=== PATIENT | male | born 1950 | race Hispanic/Latino ===

== ENCOUNTER 2017-09-03 08:50 | Outpatient (CLI) | payer MEDICARE ==
[2017-09-03 11:18] LABS: #Eosinphils 0.2 thou/uL (0.0-0.7); #Lymphocytes 1.7 thou/uL (1.20-3.40); #Monocytes 0.5 thou/uL (0.11-0.59); #Neutrophils 7.2 thou/uL (1.40-6.50); %Basophils 0.1 % (0.0-1.0); %Eosinophils 2.1 % (0.0-10.0); %Lymphocytes 17.8 % (21.0-51.0); %Monocytes 5.1 % (0.0-10.0); Hemoglobin 15.3 g/dL (14.0-18.0); Mean Corpuscular HGB CONC 34.2 g/dL (32.0-36.0); Mean Corpuscular Hemoglobin 30.8 pg (27.0-31.0); Mean Corpuscular Volume 89.9 fl (80.0-94.0); Mean Platelet Volume 8.1 fL (7.4-10.4); Platelet Count 178 thou/uL (130-400); RBC Distribution Width 12.3 % (11.5-14.5); Red Blood Cell (RBC) Count 4.96 mill/uL (4.70-6.10); White Blood Cell (WBC) Count 9.6 thou/uL (4.8-10.8)
[2017-09-03 11:32] LABS: ALT (SGPT) 79 U/L (8-55); AST (SGOT) 31 U/L (5-34); Albumin 4.2 g/dL (3.4-4.8); Alkaline Phosphatase 88 U/L (40-150); Anion Gap 15 mmol/L (10-20); BUN (Urea Nitrogen) 16 mg/dL (8.4-25.7); Bilirubin, Total 0.7 mg/dL (0.2-1.2); Calc. Creatinine Clearance 0 mL/min (70-130); Calcium 9.6 mg/dL (7.8-10.44); Carbon Dioxide 26 mmol/L (23-31); Chloride 99 mmol/L (98-107); Estimated GFR-MDRD 83; Globulin 3.6 g/dL (2.4-3.5); Glucose 207 mg/dL (80-115); Potassium 3.7 mmol/L (3.5-5.1); Protein, Total 7.8 g/dL (5.8-8.1); Sodium 136 mmol/L (136-145)
--- NOTE | 2017-09-11 19:32 | EKG ---
Test Reason : Blood Pressure : / mmHG Vent. Rate : 080 BPM Atrial Rate : 080 BPM P-R Int : 154 ms QRS Dur : 120 ms QT Int : 400 ms P-R-T Axes : -04 058 028 degrees QTc Int : 461 ms Normal sinus rhythm Right bundle branch block Possible Inferior infarct , age undetermined Abnormal ECG Confirmed by ALEXEY MCLEAN ([id number]) on 09/11/2017 7:31:44 PM Referred By: LUIS FERNANDO Confirmed By:ALEXEY MCLEAN
== END 2017-09-03 08:51 | disposition home or self-care (01) ==
LOC: LABBT 08:50
PROVIDERS: ATTEND Specialist
DX: Z01.818 Encounter for other preprocedural examination (principal); K94.00 Colostomy complication, unspecified; Z87.19 Personal history of other diseases of the digestive system; Z93.3 Colostomy status; Z90.49 Acquired absence of other specified parts of digestive tract
CPT/HCPCS: 80053; 85025; 93005; 93010

== ENCOUNTER 2017-12-16 10:19 | Outpatient (CLI) | payer MEDICARE, MEDICAID ==
[2017-12-16 11:40] LABS: #Eosinphils 0.3 thou/uL (0.0-0.7); #Lymphocytes 1.3 thou/uL (1.20-3.40); #Monocytes 0.4 thou/uL (0.11-0.59); %Basophils 0.2 % (0.0-1.0); %Eosinophils 5.3 % (0.0-10.0); %Lymphocytes 26.2 % (21.0-51.0); %Monocytes 7.6 % (0.0-10.0); %Neutrophils 60.7 % (42.0-75.0); Hemoglobin 15.1 g/dL (14.0-18.0); Mean Corpuscular HGB CONC 32.8 g/dL (32.0-36.0); Mean Corpuscular Hemoglobin 29.3 pg (27.0-31.0); Mean Corpuscular Volume 89.4 fl (80.0-94.0); Mean Platelet Volume 7.8 fL (7.4-10.4); Platelet Count 184 thou/uL (130-400); Red Blood Cell (RBC) Count 5.16 mill/uL (4.70-6.10)
[2017-12-16 12:01] LABS: Anion Gap 13 mmol/L (10-20); BUN (Urea Nitrogen) 18 mg/dL (8.4-25.7); Calc. Creatinine Clearance 0 mL/min (70-130); Calcium 9.2 mg/dL (7.8-10.44); Carbon Dioxide 28 mmol/L (23-31); Chloride 101 mmol/L (98-107); Estimated GFR-MDRD 70; Glucose 131 mg/dL (80-115); Potassium 4.2 mmol/L (3.5-5.1); Sodium 138 mmol/L (136-145)
--- NOTE | 2017-12-21 08:44 | EKG ---
Test Reason : Blood Pressure : / mmHG Vent. Rate : 057 BPM Atrial Rate : 057 BPM P-R Int : 198 ms QRS Dur : 120 ms QT Int : 448 ms P-R-T Axes : 000 077 021 degrees QTc Int : 436 ms Sinus bradycardia Right bundle branch block Abnormal ECG When compared with ECG of 03-SEP-2017 10:13, Borderline criteria for Inferior infarct are no longer Present Confirmed by HUSSEIN CARBALLO, BARBRA ([id number]) on 12/21/2017 8:44:06 AM Referred By: LUIS FERNANDO Confirmed By:BARBRA SAVAGE MD
== END 2017-12-16 10:20 | disposition home or self-care (01) ==
LOC: LABBT 10:19
PROVIDERS: ATTEND Specialist
DX: Z01.818 Encounter for other preprocedural examination (principal); Z90.49 Acquired absence of other specified parts of digestive tract; Z93.3 Colostomy status
CPT/HCPCS: 80048; 83036; 85025; 93005; 93010

== ENCOUNTER 2017-12-16 10:30 | Inpatient (IN) | payer MEDICARE, MEDICAID ==
--- NOTE | 2017-12-16 11:10 | HP ---
HISTORY OF PRESENT ILLNESS: Wili Patterson is a 67-year-old patient seen last 08/05/2017, planning lap aroscopic colostomy reversal, but postponed due to financial reasons. This Kelsy's procedure was performed on 01/15/2017. Prior to that, 2013, Dr. Avila performed a laparoscopic washout and drain placement, but the patient did not follow up. He has not had a colonoscopy. The patient has raised finances and plan is for consent for pass his gastroenterology consultation for colonoscopy. We lizeth anton coordinate with [facility] such that he could have a bowel prep on Friday, unde rgo colonoscopy, continue clear liquids post-procedure, take oral antibiotics post-colonoscopy, ariela nue clear liquids, and have a laparoscopic colostomy reversal. Risk of infection, bleeding, reoperat ion, anastomotic leakage discussed, he consents. PAST MEDICAL HISTORY: Diabetes mellitus, hypertension, diverticulitis, tobacco use. PAST SURGICAL HISTORY: Left ear surgery; left nephrectomy in 1998; laparoscopic washout and drain pl acement, Dr. Avila, 02/19/2014; laparotomy; colon resection; Kelsy's procedure 01/15/2017. TOBACCO: 1/2 pack per day. ALCOHOL: Socially, rarely. 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 He is followed by Dr. Yanez. MEDICATIONS: Atenolol 50/25 mg a day, metformin 500 mg twice a day, magnesium 4 times a day, amlodip ine 5 mg a day, lisinopril 20/12.5 daily, pravastatin 40 mg a day, Leydi Aspirin 81 mg a day, Aleve a s needed. REVIEW OF SYSTEMS: Ten point noncontributory. PHYSICAL EXAMINATION: VITAL SIGNS: 200 pounds, 69 inches, 29 BMI, 125/72, 65, 98 degrees. HEAD, EARS, EYES, NOSE, AND THROAT: Unremarkable. LUNGS: Clear to auscultation. CARDIAC: Regular rate and rhythm without murmur or gallop. ABDOMEN: Soft, nontender. Colostomy present. Well-healed midline incision. No hernias. EXTREMITIES: Unremarkable. No ankle edema. ASSESSMENT AND PLAN: Undesired colostomy. PLAN: Laparoscopic colostomy reversal after colonoscopy. Risks and benefits discussed.
[2017-12-17] MEDS ORDERED: PROPOFOL 200 MG/20 ML VIAL ONE (11:07)
[2017-12-17] MEDS ORDERED: Glycopyrrolate 0.2 MG/ML 5 ML SYRINGE ONE (11:07)
[2017-12-17] MEDS ORDERED: Lidocaine 1% PF 5 ML VIAL ONE (11:07)
[2017-12-17] MEDS ORDERED: Bupivacaine HCl 0.5%/Epinephrine 1:200,000/PF 30 ml Vial ONE ×2 (11:46→13:04)
[2017-12-17] MEDS ORDERED: Ketorolac Tromethamine 30 MG/ML VIAL ONE (11:57)
[2017-12-17] MEDS ORDERED: Dexamethasone 4 mg/ml Vial ONE (12:04)
[2017-12-17] MEDS ORDERED: Fentanyl 100 MCG/2 ML VIAL ONE ×3 (12:04→18:51)
[2017-12-17] MEDS ORDERED: Midazolam HCl 2 mg/2 ml Vial ONE ×2 (12:04→13:07)
[2017-12-17] MEDS ORDERED: HYDROmorphone 0.5 MG/0.5 ML SYRINGE ONE (13:07)
[2017-12-17] MEDS ORDERED: cefOXitin 2 GM VIAL ONE (13:43)
[2017-12-17] MEDS ORDERED: Ondansetron HCl/PF 4 MG/2 ML Vial IVP PRN ×2 (17:56→18:43)
[2017-12-17] MEDS ORDERED: hydrALAZINE 20 MG/ML VIAL SLOW IVP PRN (17:56)
[2017-12-17] MEDS ORDERED: HumaLOG 300 UNITS/3 ML VIAL SC PRN (17:56)
[2017-12-17] MEDS ORDERED: Morphine 4 MG/ML VIAL SLOW IVP PRN ×2 (18:15)
[2017-12-17] MEDS ORDERED: Promethazine HCl 25 MG/ML VIAL SLOW IVP PRN (18:43)
[2017-12-17] MEDS ORDERED: Promethazine HCl 25 MG/ML VIAL IM PRN (18:43)
[2017-12-17] MEDS: Ketorolac Tromethamine 30 MG/ML VIAL IVP SCH ×2 (19:31→23:12)
[2017-12-17] MEDS: Acetaminophen 1,000 MG in Premix Bag 1 BAG IVPB SCH ×2 (19:31→23:10)
[2017-12-17] MEDS: Lactated Ringer's 1,000 ML IV SCH (19:58)
[2017-12-17] MEDS: Enoxaparin Sodium 40 MG/0.4 ML SYRINGE SC SCH (20:05)
[2017-12-17] MEDS: Famotidine 20 MG TAB PO SCH (20:05)
[2017-12-17] MEDS: Famotidine/PF 20 mg/2ml Vial SLOW IVP SCH (20:06)
[2017-12-17 21:14] VITALS: BMI 29.6
--- NOTE | 2017-12-17 23:04 | OP ---
DATE OF OPERATION: 12/17/2017 PREOPERATIVE DIAGNOSES: History of diverticulitis, undesired colostomy, adhesions from prior surgery , history of nephrectomy, chevron incision. SURGEON: Dr. Jaquan Camp. ANESTHESIA: General, tap block. PROCEDURES: Laparoscopic adhesiolysis, laparoscopic reversal of colostomy, laparoscopic colorectal a nastomosis, 33-mm EEA stapler, checked under water without leak. PROCEDURE IN DETAIL: The patient was taken to the operating room where under general anesthesia and tap block in dorsal lithotomy position, abdomen was clipped, prepared with chloraprep, draped in rout ine fashion. Buttocks and peritoneum were prepared with Betadine, draped in routine fashion. Huang catheter placed at the beginning of the procedure. Right lateral subcostal incision made through the old lateral chevron incision scar and pneumoperitoneum to 15 mmHg obtained with the Veress needle, r eplacing it with a 5 port laparoscope inserted. There was adhesion free air in the right abdomen and mid lateral abdomen incision made and a 5 port placed and right lower quadrant incision made and a 5 port placed under laparoscopic visualization. Later left lower quadrant 5-port placed through a sma ll incision. Adhesiolysis was carried out freeing omentum and swell off in the anterior abdominal wa ll. Thus, an incision was carried out freeing small bowel adhesions from the left colon in the colos zain area. Once these were all freed and attention was then turned to the pelvis. Adhesiolysis olea ied out small bowel from the pelvis identifying Kelsy's pouch and the Prolene suture. Kelsy's pouch was mobilized and then cleared of surrounding fatty tissue. A small segment of the rectum exci sed using the Endo-MAYRA stapler, placed in the right lower quadrant, 5-mm port with a 12 port. This w as removed through this 12-port site and submitted to pathology. Stapled stump was hemostatic and se cured. Care was taken to stay clear of the ureters. At this point, incision was made around the colostomy and colostomy dissected free, brought out of th e incision into the colon which had been preoperatively closed with continuous locking suture of 3-0 silk was excised and a pursestring suture of 2-0 Prolene was placed after 33-mm anvil placed in the e nd of the colon. Prolene sutures tied around the anvil and was dropped back into the abdominal cavit y. We then changed our gloves and gowns and the posterior fascia approximated with continuous suture of #1 PDS, anterior fascia approximated with interrupted [id number] sutures of 0 PDS pop offs. Pneumoperitoneum reestablished and laparoscopy reinserted. Runner Worker then placed dilators per anus and the Kelsy's pouch, severely dilating this up. The 33 mm EEA stapler was then placed and visua lized laparoscopically in staple line. The post advanced out of the staple line and the proximal col on approximated to the post-mated and then the scope tightened within the torque fire range and fired and loosened and removed without difficulty. Donuts were intact. Anastomosis checked under water w ith air insufflation using the proctoscope occluding the left colon proximal to the colorectal anasto mosis. There was no leak noted and the colon had adequate distention. The proctoscope removed. Abd ominal cavity irrigated and irrigant evacuated. Area of incision inspected. No small bowel injury a ppreciated. Pneumoperitoneum evacuated and all instruments removed and the colostomy site approximat ed by approximating the subcutaneous tissues with 3-0 Monocryl after irrigating the area. Skin appro ximated of all incisions with interrupted subdermal 4-0 Monocryl and DermaGlue applied.
[2017-12-18] MEDS: Lactated Ringer's 1,000 ML IV SCH ×2 (03:36→12:46)
[2017-12-18 05:03] LABS: #Lymphocytes 0.9 thou/uL (1.20-3.40); #Monocytes 0.8 thou/uL (0.11-0.59); #Neutrophils 9.6 thou/uL (1.40-6.50); %Basophils 0.1 % (0.0-1.0); %Lymphocytes 8.3 % (21.0-51.0); %Monocytes 6.8 % (0.0-10.0); %Neutrophils 84.8 % (42.0-75.0); Mean Corpuscular HGB CONC 33.7 g/dL (32.0-36.0); Mean Corpuscular Hemoglobin 30.1 pg (27.0-31.0); Mean Corpuscular Volume 89.1 fl (80.0-94.0); Mean Platelet Volume 7.9 fL (7.4-10.4); Platelet Count 176 thou/uL (130-400); RBC Distribution Width 12.9 % (11.5-14.5); Red Blood Cell (RBC) Count 4.67 mill/uL (4.70-6.10); White Blood Cell (WBC) Count 11.3 thou/uL (4.8-10.8)
[2017-12-18 05:08] LABS: Anion Gap 15 mmol/L (10-20); BUN (Urea Nitrogen) 28 mg/dL (8.4-25.7); Calc. Creatinine Clearance 78 mL/min (70-130); Calcium 8.7 mg/dL (7.8-10.44); Carbon Dioxide 23 mmol/L (23-31); Chloride 106 mmol/L (98-107); Estimated GFR-MDRD 60; Glucose 169 mg/dL (80-115); Potassium 3.9 mmol/L (3.5-5.1); Sodium 140 mmol/L (136-145)
[2017-12-18] MEDS: Ketorolac Tromethamine 30 MG/ML VIAL IVP SCH ×4 (05:36→23:18)
[2017-12-18] MEDS: Acetaminophen 1,000 MG in Premix Bag 1 BAG IVPB SCH ×2 (05:36→14:10)
[2017-12-18] MEDS: Famotidine/PF 20 mg/2ml Vial SLOW IVP SCH (07:58)
[2017-12-18] MEDS: Famotidine 20 MG TAB PO SCH (07:58)
[2017-12-18] MEDS: Aspirin 81 mg Enteric Coated Tablet PO SCH (07:58)
[2017-12-18] MEDS ORDERED: traMADol HCl 50 MG TAB PO PRN ×2 (14:08)
[2017-12-18] MEDS: Acetaminophen 500 MG TAB PO SCH ×2 (15:07→20:07)
[2017-12-18] MEDS: Enoxaparin Sodium 40 MG/0.4 ML SYRINGE SC SCH (20:07)
[2017-12-18] MEDS ORDERED: Atorvastatin Calcium 10 MG TAB PO SCH (21:00)
[2017-12-19] MEDS: Acetaminophen 500 MG TAB PO SCH ×3 (01:45→15:59)
[2017-12-19] MEDS: Ketorolac Tromethamine 30 MG/ML VIAL IVP SCH ×2 (05:39→12:29)
[2017-12-19] MEDS: Aspirin 81 mg Enteric Coated Tablet PO SCH (08:52)
[2017-12-19] MEDS: Magnesium Oxide 250 MG TAB PO SCH ×2 (08:52→08:53)
[2017-12-19] MEDS ORDERED: RANITIDINE HCL 150 MG PO PRN (14:53)
[2017-12-19] MEDS ORDERED: diphenhydrAMINE 50 MG CAP PO PRN (14:53)
[2017-12-19] MEDS ORDERED: Ibuprofen 600 MG TAB PO PRN (14:55)
[2017-12-19] MEDS ORDERED: Acetaminophen 500 MG TAB PO PRN (14:55)
[2017-12-19 15:28] VITALS: BP 143/80; TEMP 97.4
--- NOTE | 2017-12-19 15:34 | PRG ---
DATE OF SERVICE: 12/19/2017 SUBJECTIVE: Wili Patterson is doing well today. OBJECTIVE: VITAL SIGNS: Stable, afebrile. GENERAL: He is tolerating liquids. He has had a bowel movement, passed flatus. He wants to go home . LUNGS: Clear to auscultation. CARDIAC: Regular rate and rhythm. No murmur, rub, or gallop. ABDOMEN: Soft, bowel sounds present, nontender. Surgical wounds look good. ASSESSMENT AND PLAN: Status post colostomy reversal, laparoscopic. PLAN: Discharge home today. Ultram for pain, [id number] Tylenol, Motrin as able. Follow up i n my office in 2-3 weeks. No lifting over 25-30 pounds for 4 weeks.
[2017-12-19] MEDS ORDERED: metFORMIN 500 MG TAB PO SCH (17:00)
[2017-12-19] MEDS ORDERED: Amlodipine 5 MG TAB PO SCH (21:00)
--- NOTE | 2017-12-20 01:39 | DIS ---
DATE OF ADMISSION: 12/17/2017 DATE OF DISCHARGE: 12/19/2017 DISCHARGE DIAGNOSES: Undesired colostomy, history of diverticulitis. PROCEDURES: Laparoscopic colostomy reversal, adhesiolysis. HISTORY: A 67-year-old male patient underwent preoperative bowel prep, colonoscopy [facility] and admitted the day of surgery for laparoscopic colostomy reversal. Postoperatively, he has done well. He had a left nephrectomy in 1998, Chevron incision. He smokes half pack a day. Postoperatively, convalesced to have bowel function and tolerated diet, being discharged home to resu me his diabetic medications, resume his home medications of atenolol, metformin, magnesium, amlodipin e, lisinopril, pravastatin, aspirin, Aleve. He is sent home with [id number], two refills. Follow up in my office in 2-3 weeks. No lifting over 25 pounds for 4 weeks.
[2017-12-20] MEDS ORDERED: Glimepiride 2 MG TAB PO SCH (07:30)
[2017-12-20] MEDS ORDERED: Lisinopril/Hydrochlorothiazide 20 mg/12.5 mg Tablet PO SCH (09:00)
[2017-12-20] MEDS ORDERED: Naproxen 500 MG TAB PO PRN (23:59)
== END 2017-12-19 16:51 | disposition home or self-care (01) | DRG 337 ==
LOC: EDSTATUS 12-17 10:30 → SURG A 12-17 10:43
PROVIDERS: ADMIT Specialist; ATTEND Specialist
PROC: 0DSN4ZZ Reposition Sigmoid Colon, Percutaneous Endoscopic Approach (ICD-10-PCS; principal; 2017-12-17)
PROC: 0DNU4ZZ Release Omentum, Percutaneous Endoscopic Approach (ICD-10-PCS; 2017-12-17)
PROC: 0DN84ZZ Release Small Intestine, Percutaneous Endoscopic Approach (ICD-10-PCS; 2017-12-17)
DX: Z43.3 Encounter for attention to colostomy (principal); E11.9 Type 2 diabetes mellitus without complications; I10 Essential (primary) hypertension; Z90.5 Acquired absence of kidney; F17.210 Nicotine dependence, cigarettes, uncomplicated; K66.0 Peritoneal adhesions (postprocedural) (postinfection); Z79.84 Long term (current) use of oral hypoglycemic drugs; Z79.82 Long term (current) use of aspirin; Z79.899 Other long term (current) drug therapy
CPT/HCPCS: 36415; 36416; 80048; 83036; 85025; 88304; 93005; 93010; J0131; J0670; J0694; J1100; J1170; J1650; J1885; J2001; J2250; J2270; J2704; J3010

== ENCOUNTER 2018-01-22 18:55 | Emergency (ER) | payer MEDICARE, MEDICAID ==
--- NOTE | 2018-01-22 19:23 | RAD ---
CHEST TWO VIEWS: 01/22/2018 PROVIDED CLINICAL HISTORY: Cough. COMPARISON: 01/15/2017 FINDINGS: Cardiac and mediastinal silhouette are within normal limits. Lungs appear clear. No pleural fluid o r pneumothorax apparent. Degenerative changes are seen involving the thoracic spine. IMPRESSION: No evidence for an acute cardiopulmonary process. POS: [facility]
== END 2018-01-22 19:47 | disposition home or self-care (01) ==
LOC: ERS 18:55
DX: J06.9 Acute upper respiratory infection, unspecified (principal); E11.9 Type 2 diabetes mellitus without complications; I10 Essential (primary) hypertension; F17.210 Nicotine dependence, cigarettes, uncomplicated; Z85.528 Personal history of other malignant neoplasm of kidney
CPT/HCPCS: 71046

== ENCOUNTER 2018-11-03 14:55 | Emergency (ER) | payer MEDICAID, MEDICARE ==
--- NOTE | 2018-11-03 16:09 | RAD ---
CHEST TWO VIEWS: History: Cough. Comparison: 01-22-18 FINDINGS: Cardiac silhouette and pulmonary vasculature are unremarkable. Mediastinum is midline. Slight elevati on of the right hemidiaphragm is stable. No confluent airspace consolidation, pneumothorax, or pleura l fluid. Degenerative changes thoracic spine on the lateral view. IMPRESSION: No active cardiopulmonary abnormalities are demonstrated. POS: [facility]
== END 2018-11-03 16:49 | disposition home or self-care (01) ==
LOC: ERS 14:55
DX: J20.9 Acute bronchitis, unspecified (principal); J30.9 Allergic rhinitis, unspecified; E11.9 Type 2 diabetes mellitus without complications; I10 Essential (primary) hypertension; F17.210 Nicotine dependence, cigarettes, uncomplicated; Z79.899 Other long term (current) drug therapy; Z79.84 Long term (current) use of oral hypoglycemic drugs
CPT/HCPCS: 71046

== ENCOUNTER 2019-03-04 17:56 | Emergency (ER) | payer MEDICARE ==
[2019-03-04] MEDS ORDERED: HYDROcodone/Acetaminophen 5/325 mg Tablet ONE (18:33)
--- NOTE | 2019-03-04 18:53 | RAD ---
RADIOGRAPH CHEST AND LEFT RIBS 4 VIEW: DATE: 03/04/2019 HISTORY: 68-year-old male with left-sided chest pain FINDINGS: The thoracic aorta is tortuous and ectatic. There is no evidence of airspace density, pulmonary edema , or pneumothorax. The lateral costophrenic angles are not effaced. No left rib fracture identified. Cluster of large number of surgical clips in left upper quadrant of abdomen. IMPRESSION: 1) No acute pulmonary findings. 2) ectasia of thoracic aorta. 3) normal left ribs. 4) postsurgical changes in left upper quadrant of abdomen.
--- NOTE | 2019-03-04 19:09 | RAD ---
Radiograph left shoulder 3 views: HISTORY: 68-year-old male with traumatic left shoulder pain FINDINGS: No fracture or dislocation. 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 Mild DJD at glenohumeral joint. IMPRESSION: No fracture
== END 2019-03-04 19:18 | disposition home or self-care (01) ==
LOC: ERS 17:56
DX: S20.212A Contusion of left front wall of thorax, initial encounter (principal); S40.012A Contusion of left shoulder, initial encounter; S40.812A Abrasion of left upper arm, initial encounter; S30.810A Abrasion of lower back and pelvis, initial encounter; E11.9 Type 2 diabetes mellitus without complications; I10 Essential (primary) hypertension; Z87.891 Personal history of nicotine dependence; Z85.528 Personal history of other malignant neoplasm of kidney; Z79.4 Long term (current) use of insulin; W17.89XA Other fall from one level to another, initial encounter